=== PATIENT | male | born 1940 | race Caucasian/White ===

== ENCOUNTER 2018-01-23 13:03 | Emergency (ER) | payer MEDICARE ==
[2018-01-23] MEDS ORDERED: PROVENTIL 2.5 MG/3 ML NEB IH ONE ×2 (13:08→13:45)
[2018-01-23 13:17] LABS: A-aADO2 437; ABG HEMOGLOBIN 10.5; ARTERIAL BLD GAS O2 SATURATION 99.9 % (95-100); ARTERIAL BLOOD GAS BASE EXCESS -12.7 (-2.0-2.0); ARTERIAL BLOOD GAS FIO2 100 %; ARTERIAL BLOOD GAS PCO2 28 mmHg (35-45); ARTERIAL BLOOD GAS PO2 241 mmHg (75-100); ARTERIAL BLOOD GAS VENT MODE BiPAP; ARTERIAL BLOOD GAS pH 7.27 (7.35-7.45); CARBOXYHEMOGLOBIN 2.1 % THgb (0.0-6.9); HCO3- 12.9 (22-28); HGB O2 SAT 96.3 g/dF (94-100); Lactic Acid 4.5 (0.4-2.0); Methhemoglobin 1.4 % (1.4-1.5); paO2 pAO1 0.36
--- NOTE | 2018-01-23 13:17 | ERPHSYRPT ---
- History of Present Illness Time Seen by Provider: 01/23/18 13:13 Source: patient, EMS Exam Limitations: other (patient difficult to understand) Physician History: This is a 77-year-old white male with history of high blood pressure COPD prostate cancer leukemia and renal failure. He is brought by the medics with complaint that the patient was having a hard time breathing for 5 days he was a infused at home for 5 days. Patient was noted to have a Accu-Chek of 45 on arrival and was noted to have oxygenation of 80% when medics arrived. Patient was given normal saline 500 mL D50 1 amp Solu-Medrol 125 and DuoNeb treatment. On arrival patient is given BiPAP is somewhat difficult to understand secondary to this he is alert he has bilateral rhonchi in his lungs with breathing. Past medical history includes renal failure, high blood pressure, COPD, prostate cancer, leukemia. Timing/Duration: day(s) (5 days) Severity: moderate Associated Symptoms: shortness of breath, cough, other (confused at home), No nausea, No vomiting, No abdominal pain, No heartburn, No diaphoresis, No chills , No chest pain, No fever, No headaches, No loss of appetite, No malaise, No rash, No syncope, No seizure, No weakness Allergies/Adverse Reactions: No Known Drug Allergies Allergy (Verified 01/23/18 13:19) Home Medications: Glyburide [Glyburide] 01/23/18 [History] Tamsulosin HCl [Tamsulosin HCl] 01/23/18 [History] - Review of Systems Constitutional: Fever Eyes: No Symptoms Ears, Nose, & Throat: No Symptoms Respiratory: Cough, Dyspnea, Wheezing Cardiac: No Chest Pain, No Edema, No Syncope Abdominal/Gastrointestinal: No Abdominal Pain, No Nausea, No Vomiting, No Diarrhea Genitourinary Symptoms: No Dysuria Musculoskeletal: No Back Pain, No Neck Pain Skin: No Rash Neurological: Other (confused at home) Psychological: No Symptoms Endocrine: Other (blood sugar 45 according to medics at home) All Other Systems: Reviewed and Negative - Nursing Vital Signs Nursing Vital Signs: Initial Vital Signs Pulse Rate 134 H 01/23/18 13:06 Blood Pressure 119/82 01/23/18 13:06 O2 Sat by Pulse Oximetry 100 01/23/18 13:06 Pain Scale Pain Intensity 0 - Physical Exam General Appearance: moderate distress Eye Exam: PERRL/EOMI, eyes nml inspection Ears, Nose, Throat Exam: normal ENT inspection, TMs normal, pharynx normal, moist mucous membranes Neck Exam: normal inspection, non-tender, supple, full range of motion Respiratory Exam: rhonchi, wheezing Cardiovascular Exam: normal peripheral pulses, tachycardia Gastrointestinal/Abdomen Exam: soft, normal bowel sounds, No tenderness, No mass Back Exam: normal inspection, normal range of motion, No CVA tenderness, No vertebral tenderness Extremity Exam: normal inspection, normal range of motion, pelvis stable Neurologic Exam: alert, oriented x 3, cooperative Skin Exam: normal color, warm, dry, No rash SpO2 Interpretation: borderline oxygenation - Course Nursing assessment & vital signs reviewed: Yes EKG Interpreted by Me: RATE, Other (EKG narrow tachycardia with a large amount of artifact 152 bpm normal axis, no acute ST or T wave changes noted.) - Radiology Exams Chest X-ray Interpretation: Discussed w/ radiologist, Other (chest x-ray: right upper lobe infiltrate/atelectasis corelate clinically ) Ordered Tests: Active Orders 24 hr Category Date Time Status Accucheck STAT Care 01/23/18 13:12 Active [employer] STAT Care 01/23/18 13:09 Active EKG-ER Only STAT Care 01/23/18 13:08 Active EKG-ER Only STAT Care 01/23/18 14:48 Active IV Insertion STAT Care 01/23/18 13:08 Active Pulse Oximetry (ED) STAT Care 01/23/18 13:08 Active CHEST 1 VIEW (PORTABLE) Stat Exams 01/23/18 13:09 Completed ARTERIAL BLOOD GASES Stat Lab 01/23/18 13:08 Completed BLOOD CULTURE Stat Lab 01/23/18 13:50 Received CBC W DIFF Stat Lab 01/23/18 13:45 Completed CMP Stat Lab 01/23/18 13:45 Completed CULTURE,SPUTUM Stat Lab 01/23/18 13:09 Uncollected CULTURE,URINE Stat Lab 01/23/18 13:20 Received D-DIMER QUANTITATION Stat Lab 01/23/18 13:45 Completed Lactic Acid Stat Lab 01/23/18 13:08 Completed Lactic Acid Stat Lab 01/23/18 14:47 Results Lactic Acid Stat Lab 01/23/18 15:17 Ordered Manual Differential NC Stat Lab 01/23/18 13:45 Completed NT PRO BNP Stat Lab 01/23/18 13:45 Completed PROTIME WITH INR Stat Lab 01/23/18 13:45 Completed PTT Stat Lab 01/23/18 13:45 Completed TROPONIN Q3H Lab 01/23/18 13:45 Completed TROPONIN Q3H Lab 01/23/18 16:15 Ordered TROPONIN Q3H Lab 01/23/18 19:15 Ordered TROPONIN Q3H Lab 01/23/18 22:15 Ordered TROPONIN Q3H Lab 01/24/18 01:15 Ordered UA W/ MICROSCOPIC Stat Lab 01/23/18 13:20 Completed BiPap/CPAP Assessment STAT RT 01/23/18 13:08 Completed Respiratory Nebulizer STAT RT 01/23/18 13:11 Completed Medication Summary Discontinued Medications Generic Name Dose Route Start Last Admin Trade Name Freq PRN Reason Stop Dose Admin Albuterol Sulfate 2.5 mg 01/23/18 13:08 01/23/18 13:45 Proventil 2.5 Mg/3 Ml Neb IH 01/23/18 13:09 2.5 mg STAT ONE Administration Albuterol Sulfate Confirm 01/23/18 13:45 Proventil 2.5 Mg/3 Ml Neb Administered 01/23/18 13:46 Dose 2.5 mg IH .STK-MED ONE Dextrose 50 ml 01/23/18 13:19 01/23/18 13:23 D50w 50 Ml Abboject IV 01/23/18 13:20 50 ml STAT ONE Administration Dextrose Confirm 01/23/18 13:20 D50w 50 Ml Abboject Administered 01/23/18 13:21 Dose 50 ml IV .STK-MED ONE Ceftriaxone Sodium/Dextrose 1 g in 50 mls @ 100 mls/hr 01/23/18 13:21 13:30 Rocephin 1 Gm-D5w 50 Ml Bag IV 01/23/18 13:50 100 mls/hr STAT STA Administration Sodium Chloride 1,000 mls @ 999 mls/hr 01/23/18 13:22 01/23/18 13:29 Sodium Chloride 0.9% 1000 Ml IV 01/23/18 14:22 999 mls/hr .Q1H1M STA Administration Sodium Chloride Confirm 01/23/18 13:29 Sodium Chloride 0.9% 1000 Ml Administered 01/23/18 13:30 Dose 1,000 mls @ ud .ROUTE .STK-MED ONE Ceftriaxone Sodium/Dextrose Confirm 01/23/18 13:29 Rocephin 1 Gm-D5w 50 Ml Bag Administered 01/23/18 13:30 Dose 1 g in 50 mls @ ud IV .STK-MED ONE Sodium Chloride 1,000 mls @ 999 mls/hr 01/23/18 13:43 01/23/18 15:55 Sodium Chloride 0.9% 1000 Ml IV 01/23/18 14:43 150 mls/hr .Q1H1M STA Administration Sodium Chloride Confirm 01/23/18 15:49 Sodium Chloride 0.9% 1000 Ml Administered 01/23/18 15:50 Dose 1,000 mls @ ud .ROUTE .STK-MED ONE Lab/Rad Data: Laboratory Result Diagrams 01/23/18 13:45 01/23/18 13:45 Laboratory Results 01/23/18 01/23/18 01/23/18 Range/Units 14:47 13:45 13:45 WBC (4.0-10.5) K/mm3 RBC (4.1-5.6) M/mm3 Hgb (12.5-18.0) gm/dl Hct (42-50) % MCV (78-100) fl MCH (26-32) pg MCHC (32-36) g/dl RDW (11.5-14.0) % Plt Count (150-450) K/mm3 MPV (6-9.5) fl INR 1.33 (0.8-3.0) APTT 30.3 (24.1-36.1) SECONDS D-Dimer 3459.62 H* (215-500) ng/mL Puncture Site pCO2 (35-45) mmHg pO2 (75-100) mmHg Base Excess (-2.0-2.0) O2 Saturation (94-100) g/dF ABG pH (7.35-7.45) ABG HCO3 (22-28) ABG O2 Sat (Measured) (95-100) % Jimbo Test A-a Gradient a/A Ratio Hemoglobin Carboxyhemoglobin (0.0-6.9) % THgb Methemoglobin (1.4-1.5) % Potassium (3.5-5.1) Temperature C POC O2 Flow Rate % Vent Mode Inspiratory BiPAP Expiratory BiPAP Sodium (137-145) mmol/L Chloride (98-107) mmol/L Carbon Dioxide (22-30) mmol/L Anion Gap (5-15) MEQ/L BUN (9-20) mg/dL Creatinine (0.66-1.25) mg/dL Estimated GFR ML/MIN Glucose (74-106) mg/dL Lactic Acid 3.6 H (0.4-2.0) Calcium (8.4-10.2) mg/dL Total Bilirubin (0.2-1.3) mg/dL AST (17-59) U/L ALT (0-50) U/L Alkaline Phosphatase (38-126) U/L Troponin I 0.026 (0.000-0.034) ng/mL NT-Pro-B Natriuret Pep (0-1800) pg/mL Serum Total Protein (6.3-8.2) g/dL Albumin (3.5-5.0) g/dL Ur Collection Type Urine Color (YELLOW) Urine Appearance (CLEAR) Urine pH (5-6) Ur Specific [place] (1.005-1.025) Urine Protein (Negative) Urine Ketones (NEGATIVE) Urine Blood (0-5) [place]/ul Urine Nitrite (NEGATIVE) Urine Bilirubin (NEGATIVE) Urine Urobilinogen (0-1) mg/dL Ur Leukocyte Esterase (NEGATIVE) Urine Microscopic RBC (0-2) /HPF Urine Microscopic WBC (0-5) /HPF Ur Epithelial Cells (FEW) /HPF Amorphous Crystals (NEGATIVE) /HPF Urine Bacteria (NEGATIVE) /HPF Granular Casts (NEGATIVE) /LPF Urine Culture Reflexed (NO) Urine Glucose (NEGATIVE) mg/dL Specimen Received 01/23/18 01/23/18 01/23/18 Range/Units 13:45 13:45 13:20 WBC 103.0 H* (4.0-10.5) K/mm3 RBC 3.47 L (4.1-5.6) M/mm3 Hgb 10.0 L (12.5-18.0) gm/dl Hct 32.2 L (42-50) % MCV 92.8 (78-100) fl MCH 28.8 (26-32) pg MCHC 31.1 L (32-36) g/dl RDW 15.2 H (11.5-14.0) % Plt Count 230 (150-450) K/mm3 MPV 10.8 H (6-9.5) fl INR (0.8-3.0) APTT (24.1-36.1) SECONDS D-Dimer (215-500) ng/mL Puncture Site pCO2 (35-45) mmHg pO2 (75-100) mmHg Base Excess (-2.0-2.0) O2 Saturation (94-100) g/dF ABG pH (7.35-7.45) ABG HCO3 (22-28) ABG O2 Sat (Measured) (95-100) % Jimbo Test A-a Gradient a/A Ratio Hemoglobin Carboxyhemoglobin (0.0-6.9) % THgb Methemoglobin (1.4-1.5) % Potassium 3.2 L (3.5-5.1) Temperature C POC O2 Flow Rate % Vent Mode Inspiratory BiPAP Expiratory BiPAP Sodium 131 L (137-145) mmol/L Chloride 100 (98-107) mmol/L Carbon Dioxide 15 L* (22-30) mmol/L Anion Gap 19.0 H (5-15) MEQ/L BUN 41 H (9-20) mg/dL Creatinine 2.48 H (0.66-1.25) mg/dL Estimated GFR 27 ML/MIN Glucose 297 H (74-106) mg/dL Lactic Acid (0.4-2.0) Calcium 6.9 L (8.4-10.2) mg/dL Total Bilirubin 0.90 (0.2-1.3) mg/dL AST 50 (17-59) U/L ALT 24 (0-50) U/L Alkaline Phosphatase 104 (38-126) U/L Troponin I (0.000-0.034) ng/mL NT-Pro-B Natriuret Pep 3020 H (0-1800) pg/mL Serum Total Protein 5.9 L (6.3-8.2) g/dL Albumin 2.8 L (3.5-5.0) g/dL Ur Collection Type VOID Urine Color YELLOW (YELLOW) Urine Appearance CLOUDY (CLEAR) Urine pH 5.0 (5-6) Ur Specific [place] 1.020 (1.005-1.025) Urine Protein 500 (Negative) Urine Ketones NEGATIVE (NEGATIVE) Urine Blood 250 (0-5) [place]/ul Urine Nitrite NEGATIVE (NEGATIVE) Urine Bilirubin NEGATIVE (NEGATIVE) Urine Urobilinogen 4 (0-1) mg/dL Ur Leukocyte Esterase NEGATIVE (NEGATIVE) Urine Microscopic RBC 2-5 (0-2) /HPF Urine Microscopic WBC 0-2 (0-5) /HPF Ur Epithelial Cells RARE (FEW) /HPF Amorphous Crystals MODERATE (NEGATIVE) /HPF Urine Bacteria FEW (NEGATIVE) /HPF Granular Casts 2-5 (NEGATIVE) /LPF Urine Culture Reflexed YES (NO) Urine Glucose 100 (NEGATIVE) mg/dL Specimen Received 01/23/18 1330 01/23/18 Range/Units 13:08 WBC (4.0-10.5) K/mm3 RBC (4.1-5.6) M/mm3 Hgb (12.5-18.0) gm/dl Hct (42-50) % MCV (78-100) fl MCH (26-32) pg MCHC (32-36) g/dl RDW (11.5-14.0) % Plt Count (150-450) K/mm3 MPV (6-9.5) fl INR (0.8-3.0) APTT (24.1-36.1) SECONDS D-Dimer (215-500) ng/mL Puncture Site LEFT RADIAL pCO2 28 L (35-45) mmHg pO2 241 H* (75-100) mmHg Base Excess -12.7 L (-2.0-2.0) O2 Saturation 96.3 (94-100) g/dF ABG pH 7.27 L (7.35-7.45) ABG HCO3 12.9 L* (22-28) ABG O2 Sat (Measured) 99.9 (95-100) % Jimbo Test YES A-a Gradient 437 a/A Ratio 0.36 Hemoglobin 10.5 Carboxyhemoglobin 2.1 (0.0-6.9) % THgb Methemoglobin 1.4 (1.4-1.5) % Potassium 3.0 L (3.5-5.1) Temperature 37.0 C POC O2 Flow Rate 100 % Vent Mode BiPAP Inspiratory BiPAP 12 Expiratory BiPAP 6 Sodium (137-145) mmol/L Chloride (98-107) mmol/L Carbon Dioxide (22-30) mmol/L Anion Gap (5-15) MEQ/L BUN (9-20) mg/dL Creatinine (0.66-1.25) mg/dL Estimated GFR ML/MIN Glucose (74-106) mg/dL Lactic Acid 4.5 H (0.4-2.0) Calcium (8.4-10.2) mg/dL Total Bilirubin (0.2-1.3) mg/dL AST (17-59) U/L ALT (0-50) U/L Alkaline Phosphatase (38-126) U/L Troponin I (0.000-0.034) ng/mL NT-Pro-B Natriuret Pep (0-1800) pg/mL Serum Total Protein (6.3-8.2) g/dL Albumin (3.5-5.0) g/dL Ur Collection Type Urine Color (YELLOW) Urine Appearance (CLEAR) Urine pH (5-6) Ur Specific [place] (1.005-1.025) Urine Protein (Negative) Urine Ketones (NEGATIVE) Urine Blood (0-5) [place]/ul Urine Nitrite (NEGATIVE) Urine Bilirubin (NEGATIVE) Urine Urobilinogen (0-1) mg/dL Ur Leukocyte Esterase (NEGATIVE) Urine Microscopic RBC (0-2) /HPF Urine Microscopic WBC (0-5) /HPF Ur Epithelial Cells (FEW) /HPF Amorphous Crystals (NEGATIVE) /HPF Urine Bacteria (NEGATIVE) /HPF Granular Casts (NEGATIVE) /LPF Urine Culture Reflexed (NO) Urine Glucose (NEGATIVE) mg/dL Specimen Received - Progress Progress: improved Progress Note: 01/23/18 13:45 77-year-old white male with history of renal failure high blood pressure COPD prostate cancer and leukemia. He arrives with complaints of shortness of breath for 5 days. Patient with confusion for 5 days as well medics checked the patient's a blood sugar noted to be 45 patient was given 500 mL of normal saline one amp of D50 Solu-Medrol 125 IV and DuoNeb treatment prior to arrival. On arrival patient is immediately given BiPAP he has bilateral rhonchi and wheezes in his lungs. Patient is alert and oriented at this time he is difficult to understand when he speaks secondary to BiPAP being in place. Patient is noted to have elevated lactate on arrival he is tachycardic. Blood cultures urine cultures and sputum cultures have been ordered. Rocephin 1 g IV has been ordered on this patient. Patient had received 500 mL on arrival from the medics I ordered 2 additional liters of normal saline which the patient is receiving. Patient's weight 52.27 kg. patient is also received albuterol treatment here in the emergency room Currently the patient's heart rate is 127 O2 sat 100 on BiPAP at 70% oxygen patient is alert oriented 3. Patient has good capillary refill to all extremities radial ulnar dorsal pedal and posterior tibial pulses are intact and symmetrical 2 over 4. Patient states he feels much better. 01/23/18 13:51 01/23/18 14:08 patient's temperature 100.2 axillary 01/23/18 15:36 I discussed the patient's case with Dr. Hemphill, he feels that the patient would be best served by having the patient go to [facility]. He apparently has an oncologist Dr. Gomez. Will place a call to [facility] one call. 01/23/18 16:02 I discussed the patient's case with Dr. Gomez the patient's oncologist at [facility]. He has agreed to accept the patient in transfer. 01/23/18 16:06 Patient's repeat EKG done at January 23, 2018 3:21 PM: Sinus tachycardia with PVC 110 bpm left axis deviation no acute ST or T wave changes noted. - Departure Time of Disposition: 16:06 Departure Disposition: Transfer ([facility] Dr Gomez) Clinical Impression: Hypoxia, COPD with exacerbation, Lactic acidosis, Hypoglycemia, History of leukemia Leukocytosis Qualifiers: Leukocytosis type: unspecified Qualified Code(s): D72.829 - Elevated white blood cell count, unspecified Sepsis Qualifiers: Sepsis type: sepsis due to unspecified organism Qualified Code(s): A41.9 - Sepsis, unspecified organism Pneumonia Qualifiers: Pneumonia type: due to unspecified organism Laterality: right Lung location: upper lobe of lung Qualified Code(s): J18.1 - Lobar pneumonia, unspecified organism Condition: Fair Critical Care Time: No Critical Care Time(excluding separately billable procedures): 30-74 minutes Referrals: Provider,Unknown [Primary Care Provider] - Instructions: Chronic Obstructive Pulmonary Disease
[2018-01-23 13:18] LABS: ABG SITE LEFT RADIAL; ALLEN TEST OK? YES
[2018-01-23] MEDS ORDERED: D50W 50 ml Abboject IV ONE ×2 (13:19→13:20)
[2018-01-23] MEDS ORDERED: ROCEPHIN 1 Gm-D5w 50 ml Bag** 1 G/50 ML IVPB IV STA (13:21)
[2018-01-23] MEDS ORDERED: Sodium Chloride 0.9% 1000 ML 1,000 ML IV STA ×2 (13:22→13:43)
[2018-01-23] MEDS ORDERED: ROCEPHIN 1 Gm-D5w 50 ml Bag** 1 G/50 ML IVPB IV ONE (13:29)
[2018-01-23] MEDS ORDERED: Sodium Chloride 0.9% 1000 ML 1,000 ML ONE ×2 (13:29→15:49)
--- NOTE | 2018-01-23 13:42 | XRAY ---
Indication: Short of breath. Comparison: None Portable chest demonstrates right upper lobe infiltrate versus atelectasis. Atelectasis more likely as there is right lung volume loss. Right base calcified granuloma. Remaining heart and lungs unremarkable. Bony thorax intact with mild osteopenia and degenerative changes. Impression: Right upper lobe infiltrate/atelectasis. Correlate clinically.
[2018-01-23 14:09] LABS: Hematocrit 32.2 % (42-50); Mean Cell Volume 92.8 fl (78-100); Mean Corpuscular Hemoglobin 28.8 pg (26-32); Mean Corpuscular Hgb Concent. 31.1 g/dl (32-36); Mean Platelet Volume 10.8 fl (6-9.5); Platelet Count 230 K/mm3 (150-450); Red Blood Count 3.47 M/mm3 (4.1-5.6); Red Cell Distribution Width 15.2 % (11.5-14.0)
[2018-01-23 14:14] LABS: Appearance CLOUDY (CLEAR); Bilirubin NEGATIVE (NEGATIVE); Blood 250 Ery/ul (0-5); Glucose 100 mg/dL (NEGATIVE); Ketones NEGATIVE (NEGATIVE); Leukocyte Esterase NEGATIVE (NEGATIVE); Nitrite NEGATIVE (NEGATIVE); Protein,Urine Dip 500 (Negative); Urobilinogen 4 mg/dL (0-1)
[2018-01-23 14:15] LABS: Bacteria FEW /HPF (NEGATIVE); Epithelial Cells RARE /HPF (FEW); WBC 0-2 /HPF (0-5)
[2018-01-23 14:17] LABS: Amourphous Crystal MODERATE /HPF (NEGATIVE)
[2018-01-23 14:31] LABS: ALBUMIN 2.8 g/dL (3.5-5.0); BILIRUBIN,TOTAL 0.9 mg/dL (0.2-1.3); Calcium 6.9 mg/dL (8.4-10.2); Creatinine 1 2.48 mg/dL (0.66-1.25); Potassium 3.2 mmol/L (3.5-5.1); Total Protein 5.9 g/dL (6.3-8.2)
[2018-01-23 15:16] LABS: Lactic Acid 3.6 (0.4-2.0)
[2018-01-23 15:20] LABS: INR 1.33 (0.8-3.0)
[2018-01-23 15:22] LABS: PTT 30.3 SECONDS (24.1-36.1)
[2018-01-23 15:25] VITALS: PULSE 110
[2018-01-23 15:46] LABS: D-DIMER QUANTITATION 3459.62 ng/mL (215-500)
[2018-01-23 16:25] LABS: BAND 5 % (0.0-2.0); Lymphocytes 74 % (24-44); Monocyte 2 % (0.0-12.0); Neutrophils 10 % (36.-66.); Total Cells Counted 100
[2018-01-23 16:28] LABS: Platelet Estimate NORMAL (NORMAL)
[2018-01-23 16:29] LABS: ANISOCYTOSIS 1+
[2018-01-23 17:24] VITALS: BP 90/67; O2SAT 98
== END 2018-01-23 17:00 | disposition short-term general hospital (02) ==
LOC: ED 13:03
DX: R09.02 Hypoxemia (principal); J44.1 Chronic obstructive pulmonary disease with (acute) exacerbation; E87.2 Acidosis; E16.2 Hypoglycemia, unspecified; D72.829 Elevated white blood cell count, unspecified; A41.9 Sepsis, unspecified organism; J18.1 Lobar pneumonia, unspecified organism; Z85.6 Personal history of leukemia; Z85.46 Personal history of malignant neoplasm of prostate; I10 Essential (primary) hypertension
CPT/HCPCS: 36000; 36415; 36600; 71045; 80053; 81000; 82375; 82803; 82962; 83605; 83880; 84484; 85025; 85379; 85610; 85730; 87040; 87077; 87086; 93005; 93041; 94002; 94640; 96360; 96361; 96365; 96374; 99285; J0696; A9270-GY